=== PATIENT | male | born 1970 | race Caucasian/White ===

== ENCOUNTER 2018-06-18 01:09 | Emergency (ER) | payer OTHER ==
--- NOTE | 2018-06-18 01:31 | ED Physician Documentation ---
History of Present Illness - Stated complaint Stated Complaint: ABD PX/MALE PX - Chief complaint Chief Complaint: Abd Pain - History obtained from History obtained from: Patient - History of Present Illness Timing: Today Pain level max: 6 Pain level now: 6 - Additonal information Additional information: 48-year-old male presents with pain and swelling to the right hemiscrotum. States he does have an inguinal hernia, but normally does not. He has been sure if the pain is from his testicle or hernia. No vomiting. Normal bowel movements. No fevers. Nothing makes it better or worse Review of Systems Constitutional: denies: Fever, Chills Cardiac: denies: Chest pain / pressure Respiratory: denies: Cough GI: denies: Nausea, Vomiting, Diarrhea Skin: denies: Rash Musculoskeletal: denies: Neck pain, Back pain Neurologic: denies: Headache PD PAST MEDICAL HISTORY - Past Medical History Respiratory: Asthma Psych: Depression, Other - Present Medications Home Medications: Ambulatory Orders Medication Instructions Recorded Confirmed Albuterol Oral Soln 1 inhaler NEB PRN 05/28/15 Sertraline [Zoloft] 2 tab PO DAILY 05/28/15 05/28/15 Amox/Clav 875/125 [Augmentin] 1 each PO Q12H #20 tablet 06/18/18 Baclofen 10 mg PO TID 06/18/18 06/18/18 Cyanocobalamin (Vitamin B-12) 1 ml IM 06/18/18 [Cyanocobalamin Injection] Ergocalciferol [Vitamin D2] 1 cap PO 06/18/18 Fluoxetine HCl 20 mg PO DAILY 06/18/18 06/18/18 Fluticasone [Flonase] 2 spray NS DAILY 06/18/18 06/18/18 Hydrocodone/Acetaminophen 1 - 2 each PO Q6H PRN #14 tablet 06/18/18 [Hydrocodon-Acetaminophen 5-325] LORazepam [Lorazepam] 0.5 mg PO Q8HR PRN 06/18/18 06/18/18 Loratadine [Allergy] 10 mg PO DAILY 06/18/18 06/18/18 Meloxicam 7.5 mg PO DAILY 06/18/18 06/18/18 Nitroglycerin 0.4 mg SL DAILY PRN 06/18/18 06/18/18 Pantoprazole [Protonix] 40 mg PO DAILY 06/18/18 06/18/18 Pramipexole Di-HCl [Mirapex] 1 tab PO QPM 06/18/18 06/18/18 Pregabalin [Lyrica] 1 cap PO TID 06/18/18 06/18/18 Trazodone HCl 1 tab PO QPM 06/18/18 06/18/18 hydrOXYzine HCl [Hydroxyzine HCl] 25 mg PO BID 06/18/18 06/18/18 - Allergies Allergies/Adverse Reactions: Allergies Allergy/AdvReac Type Severity Reaction Status Date / Time No Known Drug Allergies Allergy Verified 06/18/18 01:37 - Social History Does the pt smoke?: Yes Smoking Status: Current every day smoker PD ED PE NORMAL - Vitals Vital signs reviewed: Yes - General General: Alert and oriented X 3, No acute distress, Other (Morbidly obese) - HEENT HEENT: Moist mucous membranes, Pharynx benign - Abdomen Abdomen: Soft, Non tender, Non distended - Male Male : Other (Diffusely tender along the right side of the scrotum. Swelling present to the scrotum, unable to fully reduce the hernia. Does have tenderness around the right testicle as well) - Derm Derm: Warm and dry - Neuro Neuro: Alert and oriented X 3 Results - Vitals Vitals: Vital Signs - 24 hr 06/18/18 06/18/18 01:15 02:43 Temperature 36.5 C Heart Rate 111 H 94 Respiratory 18 18 Rate Blood Pressure 150/96 H 139/70 H O2 Saturation 100 97 Oxygen O2 Source Room air - Labs Labs: Laboratory Tests 06/18/18 06/18/18 06/18/18 02:36 02:36 02:36 WBC 8.9 RBC 4.62 L Hgb 12.0 L Hct 37.0 L MCV 80.0 MCH 25.9 L MCHC 32.4 RDW 16.7 H Plt Count 282 MPV 7.4 Neut # (Auto) 6.6 Lymph # (Auto) 1.5 [place] # (Auto) 0.6 Eos # (Auto) 0.2 Baso # (Auto) 0.1 Absolute Nucleated RBC 0.00 Nucleated RBC % 0.0 Sodium 140 Potassium 3.8 Chloride 103 Carbon Dioxide 26 Anion Gap 11.0 BUN 15 Creatinine 1.0 Estimated GFR (MDRD) 80 L Glucose 132 H Lactic Acid 1.2 Calcium 8.6 Total Bilirubin 0.6 AST 18 ALT 16 Alkaline Phosphatase 104 Total Protein 7.2 Albumin 3.5 Globulin 3.7 Albumin/Globulin Ratio 0.9 L Lipase 24 Urine Color Urine Clarity Urine pH Ur Specific [place] Urine Protein Urine Glucose (UA) Urine Ketones Urine Occult Blood Urine Nitrite Urine Bilirubin Urine Urobilinogen Ur Leukocyte Esterase Urine RBC Urine WBC Ur Squamous Epith Cells Urine Bacteria Urine Mucus Ur Microscopic Review Urine Culture Comments 06/18/18 02:42 WBC RBC Hgb Hct MCV MCH MCHC RDW Plt Count MPV Neut # (Auto) Lymph # (Auto) [place] # (Auto) Eos # (Auto) Baso # (Auto) Absolute Nucleated RBC Nucleated RBC % Sodium Potassium Chloride Carbon Dioxide Anion Gap BUN Creatinine Estimated GFR (MDRD) Glucose Lactic Acid Calcium Total Bilirubin AST ALT Alkaline Phosphatase Total Protein Albumin Globulin Albumin/Globulin Ratio Lipase Urine Color YELLOW Urine Clarity HAZY Urine pH 6.5 Ur Specific [place] 1.020 Urine Protein 30 H Urine Glucose (UA) NEGATIVE Urine Ketones NEGATIVE Urine Occult Blood MODERATE H Urine Nitrite NEGATIVE Urine Bilirubin NEGATIVE Urine Urobilinogen 0.2 (NORMAL) Ur Leukocyte Esterase SMALL H Urine RBC TNTC H Urine WBC 4-5 Ur Squamous Epith Cells FEW Squamous Urine Bacteria Few Urine Mucus Few Strands Ur Microscopic Review INDICATED Urine Culture Comments INDICATED - Rads (name of study) Testicular ultrasound Radiology: Prelim report reviewed, EMP read contemporaneously, See rad report (Suspect right inguinal hernia containing fat. 2. Increased vascularity in the right testis and epididymis compared with the left. Findings may represent epididymoorchitis on the right. 3. Small bilateral hydroceles. ) PD MEDICAL DECISION MAKING - ED course Complexity details: reviewed results, re-evaluated patient, considered differential, d/w patient ED course: 48-year-old male with a large right inguinal fat-containing hernia. Normal lactate. Not incarcerated. Does appear to have epididymoorchitis on the right. Will place on Augmentin for this. He is well-appearing, nontoxic. Afebrile. I will have him follow-up with the surgeon for his inguinal hernia. Patient counseled regarding signs and symptoms for which I believe and urgent re- evaluation would be necessary. Patient with good understanding of and agreement to plan and is comfortable going home at this time This document was made in part using voice recognition software. While efforts are made to proofread this document, sound alike and grammatical errors may occur. Departure - Departure Disposition: 01 Home, Self Care Clinical Impression: Right inguinal hernia, Right epididymitis Condition: Good Instructions: ED Hernia Inguinal, ED Epididymitis Follow-Up: Hilaria Vazquez ARNP [Primary Care Provider] - Within 1 week Prescriptions: Amox/Clav 875/125 [Augmentin] 1 each PO Q12H #20 tablet Hydrocodone/Acetaminophen [Hydrocodon-Acetaminophen 5-325] 1 - 2 each PO Q6H PRN #14 tablet PRN Reason: pain Comments: Return if you worsen. Take all antibiotics until gone. This should improve over the next week. Use the Vicodin for breakthrough pain. Do not drink alcohol or drive while on narcotic pain medicine. Note that many narcotic pain relievers also contain tylenol/acetaminophen. Please ensure that your total dose of acetaminophen from all sources does not exceed 3 grams (3000mg) per day. You may constipated on this medication, take a stool softener such as "Colace" twice a day while you are on it. Also recommend a [id number] laxative such as senna or MiraLAX any day that you do not have a bowel movement. If you received narcotic pain medication in the emergency department, do not drive or operate machinery for the next 24 hours.
[2018-06-18] MEDS ORDERED: IBUPROFEN 800 MG TABLET PO STA (01:47)
[2018-06-18] MEDS ORDERED: ACETAMINOPHEN 325 MG TABLET PO STA (01:54)
[2018-06-18 02:42] LABS: BASOPHILS # (AUTO) 0.1 10^3/uL (0.0-0.1); BASOPHILS % (AUTO) 0.9 %; EOSINOPHILS # (AUTO) 0.2 10^3/uL (0.0-0.7); EOSINOPHILS % (AUTO) 1.7 %; LYMPHOCYTES # (AUTO) 1.5 10^3/uL (1.5-3.5); MEAN CORPUSCULAR HEMOGLOBIN 25.9 pg (27.0-31.0); MEAN CORPUSCULAR HGB CONC 32.4 g/dL (32.0-36.0); MEAN PLATELET VOLUME 7.4 fL (7.4-11.4); MONOCYTES # (AUTO) 0.6 10^3/uL (0.0-1.0); MONOCYTES % (AUTO) 6.4 %; NEUTROPHILS # (AUTO) 6.6 10^3/uL (1.5-6.6); PLT - PLATELET COUNT 282 10^3/uL (130-450); RED BLOOD COUNT 4.62 10^6/uL (4.70-6.10); RED CELL DISTRIBUTION WIDTH 16.7 % (12.0-15.0); WHITE BLOOD COUNT 8.9 x10^3/uL (4.8-10.8)
[2018-06-18 02:45] VITALS: BP 139/70
[2018-06-18 02:50] LABS: BILIRUBIN,URINE NEGATIVE (NEGATIVE); GLUCOSE, URINE (UA) NEGATIVE (NEGATIVE); KETONES,URINE (UA) NEGATIVE (NEGATIVE); LEUKOCYTE ESTERASE, URINE SMALL (NEGATIVE); NITRITE,URINE NEGATIVE (NEGATIVE); OCCULT BLOOD,URINE MODERATE (NEGATIVE); PH,URINE 6.5 PH (5.0-7.5); PROTEIN,URINE 30 mg/dL (NEGATIVE); UROBILINOGEN,URINE 0.2 (NORMAL) E.U./dL (NORMAL)
[2018-06-18 02:54] LABS: ALBUMIN 3.5 g/dL (3.2-5.5); ALBUMIN/GLOBULIN RATIO 0.9 (1.0-2.2); BILIRUBIN,TOTAL 0.6 mg/dL (0.2-1.0); CALCIUM 8.6 mg/dL (8.5-10.3); TOTAL PROTEIN 7.2 g/dL (6.7-8.2)
[2018-06-18 02:58] LABS: BACTERIA,URINE Few /HPF (None Seen); CLARITY,URINE HAZY (CLEAR); MUCUS,URINE Few Strands; RBC,URINE TNTC /HPF (0-5); SQUAMOUS EPITHELIAL CELL,UR FEW Squamous (<= Few)
--- NOTE | 2018-06-18 03:05 | Ultrasound Report ---
Reason: R testicular pain/swelling Procedure Date: 06/18/2018 Accession Number: [id number] / [id number] Procedure: US - Testicle w/Doppler CPT Code: FULL RESULT: EXAM: SCROTAL ULTRASOUND EXAM DATE: 06/18/2018 02:40 AM. CLINICAL HISTORY: R testicular pain/swelling. COMPARISON: CT PELVIS W/ CONT 04/26/2012 3:59 PM. TECHNIQUE: Real-time scanning was performed with static images obtained. Color-flow images were utilized. FINDINGS: Right: Testis: 4.1 x 3.6 x 2.4 cm. Normal size. No mass identified. Slightly increased vascularity compared with the left. Epididymis: 0.9 x 1.0 x 1.2 cm. Cyst measuring 2 mm. Increased vascularity. Hydrocele: Small. Varicocele: None. Left: Testis: 4.3 x 2.2 cm. Normal size and echotexture. No mass, calcification, or abnormal blood flow. Epididymis: 0.7 x 1.0 x 1.0 cm. Cyst measuring 3 x 5 x 2 mm. Hydrocele: Small. Varicocele: None. Other: There is a suspected right inguinal hernia containing fat. IMPRESSION: 1. Suspect right inguinal hernia containing fat. 2. Increased vascularity in the right testis and epididymis compared with the left. Findings may represent epididymoorchitis on the right. 3. Small bilateral hydroceles. RADIA
[2018-06-18] MEDS ORDERED: AMOX/CLAV 875 MG/125 MG TABLET PO STA (03:13)
== END 2018-06-18 03:21 | disposition home or self-care (01) ==
LOC: ED 01:09
DX: K40.90 Unilateral inguinal hernia, without obstruction or gangrene, not specified as recurrent (principal); N45.1 Epididymitis; F17.200 Nicotine dependence, unspecified, uncomplicated
CPT/HCPCS: 36415; 76870; 80053; 81001; 83605; 83690; 85025; 87086; 87181; 93975; 99283; A9270; 81003

== ENCOUNTER 2023-11-04 12:07 | Outpatient (CLI) | payer OTHER | END 2023-11-04 12:08 | disposition home or self-care (01) | LOC: LAB.N 12:07 | PROVIDERS: ATTEND Physician Assistant | DX: N30.00 Acute cystitis without hematuria (principal) | CPT/HCPCS: 87086 ==

== ENCOUNTER 2023-11-08 09:10 | Emergency (ER) | payer OTHER ==
--- NOTE | 2023-11-08 09:25 | ED Physician Documentation ---
History of Present Illness - Stated complaint Stated Complaint: ,GROIN PX - Chief complaint Chief Complaint: Abd Pain - History obtained from History obtained from: Patient - Additonal information Additional information: 53-year-old gentleman with morbid obesity albeit has lost 140 pounds lately due to Ozempic. Has a history of epididymal orchitis in 2019 which required hospitalization for 5 days in [place] without surgical intervention. He developed dysuria last week and went to the clinic. He was diagnosed with a UTI and started on Cipro on . Subsequently urine culture grew greater than 100 K E. coli which was pansensitive. Now having more left testicular pain. No high fevers but states his temp has been high normal up to 99.8. Pain radiates into back. He does have chronic back pain for which she is on a buprenorphine patch. PD PAST MEDICAL HISTORY - Past Medical History Past Medical History: Yes Respiratory: Asthma GI: GERD : Other Psych: Depression, Other Musculoskeletal: Fibromyalgia, Chronic back pain, Other - Past Surgical History Past Surgical History: Yes General: Cholecystectomy - Present Medications Home Medications: Ambulatory Orders Medication Instructions Recorded Confirmed Cyanocobalamin (Vitamin B-12) 1 ml IM UD 06/18/18 11/08/23 [Cyanocobalamin Injection] Ergocalciferol [Vitamin D2] 1 cap PO DAILY 06/18/18 11/08/23 Pantoprazole [Protonix] 40 mg PO DAILY 06/18/18 11/08/23 Pregabalin [Lyrica] 1 cap PO TID 06/18/18 11/08/23 Trazodone HCl 3 tab PO QPM 06/18/18 11/08/23 hydrOXYzine HCL [Hydroxyzine HCl] 25 mg PO BID 06/18/18 11/08/23 Albuterol Sulfate [Proair 90 mcg IH PRN PRN 11/08/23 11/08/23 Respiclick] Atorvastatin [Lipitor] 20 mg PO QPM 11/08/23 11/08/23 Buprenorphine 1 each TD OAW 11/08/23 11/08/23 Ciprofloxacin [Cipro] 500 mg PO Q12H 11/08/23 11/08/23 Cyanocobalamin [Vitamin B-12] 1,000 mcg IM OAW 11/08/23 11/08/23 Cyclobenzaprine [Flexeril] 10 mg PO TID PRN 11/08/23 11/08/23 Ergocalciferol [Vitamin D2] 50,000 unit PO Q7D 11/08/23 11/08/23 Montelukast [Singulair] 10 mg PO QPM 11/08/23 11/08/23 Polyethylene Glycol 8000 500 gm MC DAILY 11/08/23 11/08/23 [Polyethylene Glycol] Semaglutide [Wegovy] 2 mg SQ OAW 11/08/23 11/08/23 Sulfamethox/Trimeth 800/160 1 each PO BID #20 tablet 11/08/23 [Bactrim Ds 800/160] busPIRone [Buspar] 10 mg PO BID 11/08/23 11/08/23 metFORMIN [Glucophage] 2,000 mg PO DAILY 11/08/23 11/08/23 - Allergies Allergies/Adverse Reactions: Allergies Allergy/AdvReac Type Severity Reaction Status Date / Time No Known Drug Allergies Allergy Verified 11/08/23 09:22 - Social History Does the pt smoke?: Yes Smoking Status: Current every day smoker Does the pt drink ETOH?: Yes Does the pt have substance abuse?: No - Immunizations Immunizations are current?: Yes - POLST Patient has POLST: No PD ED PE NORMAL - Vitals Vital signs reviewed: Yes - General General: Alert and oriented X 3, No acute distress - Abdomen Abdomen: Normal bowel sounds, Soft, Non tender - Male Male : Other (Left testicle is swollen and tender with normal cremaster reflex and normal lie. No hernia mass. Exam somewhat limited by body habitus.) - Neuro Neuro: Alert and oriented X 3 Results - Vitals Vitals: Vital Signs - 24 hr 11/08/23 09:19 Temperature 36.2 C L Heart Rate 121 H Respiratory 20 Rate Blood Pressure 127/98 H O2 Saturation 95 Oxygen O2 Source Room air - Labs Labs: Laboratory Tests 11/08/23 11/08/23 11/08/23 09:30 09:30 09:30 WBC 9.2 RBC 5.21 Hgb 14.2 Hct 44.4 MCV 85.2 MCH 27.3 MCHC 32.0 RDW 15.2 H Plt Count 394 MPV 9.8 Neut # (Auto) Not Reportable Lymph # (Auto) Not Reportable [place] # (Auto) Not Reportable Eos # (Auto) Not Reportable Baso # (Auto) Not Reportable Absolute Nucleated RBC Not Reportable Total Counted 100 Band Neuts % (Manual) 0 Reactive Lymphs % (Man) 6 Abnorm Lymph % (Manual) 0 Nucleated RBC % Not Reportable Neutrophils # (Manual) 4.4 Lymphocytes # (Manual) 3.5 Monocytes # (Manual) 0.5 Eosinophils # (Manual) 0.6 Basophils # (Manual) 0.2 H Differential Comment MANUAL DIFFERENTIAL WBC Morphology 2+ REACTIVE LYMPHS Sodium 135 Potassium 4.1 Chloride 101 Carbon Dioxide 25 Anion Gap 9.0 BUN 12 Creatinine 0.8 Estimated GFR (MDRD) 101 Glucose 142 H Lactic Acid 1.0 Calcium 9.7 Total Bilirubin 0.7 AST 15 ALT 23 Alkaline Phosphatase 116 Total Protein 7.1 Albumin 4.1 Globulin 3.0 Albumin/Globulin Ratio 1.4 Total PSA 11/08/23 09:30 WBC RBC Hgb Hct MCV MCH MCHC RDW Plt Count MPV Neut # (Auto) Lymph # (Auto) [place] # (Auto) Eos # (Auto) Baso # (Auto) Absolute Nucleated RBC Total Counted Band Neuts % (Manual) Reactive Lymphs % (Man) Abnorm Lymph % (Manual) Nucleated RBC % Neutrophils # (Manual) Lymphocytes # (Manual) Monocytes # (Manual) Eosinophils # (Manual) Basophils # (Manual) Differential Comment WBC Morphology Sodium Potassium Chloride Carbon Dioxide Anion Gap BUN Creatinine Estimated GFR (MDRD) Glucose Lactic Acid Calcium Total Bilirubin AST ALT Alkaline Phosphatase Total Protein Albumin Globulin Albumin/Globulin Ratio Total PSA 1.590 PD Medical Decision Making - ED course ED course: 53-year-old gentleman with morbid obesity presents with testicular pain in the setting of having been on Cipro for the last 4 days or so for a UTI with pansensitive E. coli. He has a history of sepsis due to epididymitis with abdominal wall cellulitis 5 years ago. There is no evidence of systemic illness today. He was initially tachycardic but that resolved without specific intervention. His white count is 9. PSA is normal. CMP unremarkable. Testicular ultrasound per the RDMS shows left-sided epididymitis. Given the fact that he developed it while already on antibiotics, I called our urologist, Dr. Boo who recommends changing him over to Bactrim. Departure - Departure Disposition: 01 Home, Self Care Clinical Impression: Acute epididymitis Condition: Good Record reviewed to determine appropriate education?: Yes Instructions: ED Epididymitis Follow-Up: Low Boo MD [Provider Admit Priv/Credential] - Prescriptions: Sulfamethox/Trimeth 800/160 [Bactrim Ds 800/160] 1 each PO BID #20 tablet Comments: I sent your prescription electronically to [facility] in [place]. You are seen today for the epididymitis on the left. I discussed your case by phone with our on-call urologist, Dr. Boo who made the specific recommendation to stop Cipro and start Bactrim. We also gave you a shot of Rocephin here. You should follow-up with Dr. Boo. Return for for new or worsening symptoms. Forms: PCP List
[2023-11-08 09:26] VITALS: O2SAT 95
[2023-11-08] MEDS: KETOROLAC 60 MG/2 ML VIAL IM STA (09:29)
[2023-11-08 09:36] LABS: BASOPHILS % (AUTO) 0.9 %; EOSINOPHILS % (AUTO) 2.8 %; HCT - HEMATOCRIT 44.4 % (42.0-52.0); HGB - HEMOGLOBIN 14.2 g/dL (14.0-18.0); LYMPHOCYTES % (AUTO) 27.4 %; MEAN CORPUSCULAR HEMOGLOBIN 27.3 pg (27.0-31.0); MEAN CORPUSCULAR VOLUME 85.2 fL (80.0-94.0); MEAN PLATELET VOLUME 9.8 fL (7.4-11.4); MONOCYTES % (AUTO) 7.9 %; NEUTROPHILS % (AUTO) 60.7 %; PLT - PLATELET COUNT 394 10^3/uL (130-450); RED BLOOD COUNT 5.21 10^6/uL (4.70-6.10); RED CELL DISTRIBUTION WIDTH 15.2 % (12.0-15.0); WHITE BLOOD COUNT 9.2 x10^3/uL (4.8-10.8)
[2023-11-08 09:40] LABS: ABNORMAL LYMPHS % (MANUAL) 0 %; BAND NEUTROPHILS % (MANUAL) 0 %
[2023-11-08 09:52] LABS: ALBUMIN 4.1 g/dL (3.2-5.5); ALBUMIN/GLOBULIN RATIO 1.4 (1.0-2.2); BILIRUBIN,TOTAL 0.7 mg/dL (0.2-1.0); CALCIUM 9.7 mg/dL (8.5-10.3); CREATININE 0.8 mg/dL (0.6-1.3); POTASSIUM 4.1 mmol/L (3.5-4.5); TOTAL PROTEIN 7.1 g/dL (6.4-8.9)
[2023-11-08 09:59] LABS: BASOPHILS # (MANUAL) 0.2 10^3/uL (0-0.1); BASOPHILS % (MANUAL) 2 %; EOSINOPHILS # (MANUAL) 0.6 10^3/uL (0-0.7); LYMPHOCYTES # (MANUAL) 3.5 10^3/uL (1.5-3.5); LYMPHOCYTES % (MANUAL) 32 %; MONOCYTES # (MANUAL) 0.5 10^3/uL (0.0-1.0); NEUTROPHILS # (MANUAL) 4.4 10^3/uL (1.5-6.6); REACTIVE LYMPHS % (MANUAL) 6 %
[2023-11-08 10:00] LABS: DIFFERENTIAL COMMENT MANUAL DIFFERENTIAL; WBC MORPHOLOGY (MULTIPLE) 2+ REACTIVE LYMPHS (NORMAL)
[2023-11-08] MEDS: LIDOCAINE 1% 2 ML VIAL MC ONE (11:14)
[2023-11-08] MEDS: cefTRIAXone 1 GM VIAL IM STA (11:14)
[2023-11-08 11:38] VITALS: BP 123/77
--- NOTE | 2023-11-08 11:41 | Ultrasound Report ---
PROCEDURE: Testicle w/Doppler INDICATIONS: L test pain TECHNIQUE: Real-time scanning was performed of the scrotum and testicles, with image documentation. Color and p ulse Doppler interrogation was performed of both testicles. COMPARISON: None. FINDINGS: Right: Testicle is normal in size at 4.1 x 3.6 x 2.4 cm, and contains scattered microliths without m ass noted. Epididymis is normal in overall size and morphology. No hydrocele. No varicoceles. Over lying scrotal skin is normal in thickness. Left: Testicle is normal in size at 4.3 x 3.1 x 2.2 cm, and contains scattered microliths without ma ss noted. Enlarged left epididymis with increased flow consistent with epididymitis. Small hydrocele. No varicoceles. Overlying scrotal skin is normal in thickness. Doppler: Color and pulse Doppler demonstrate normal and symmetric arterial flow in both testicles. IMPRESSION: 1. Left epididymitis. 2. No evidence of testicular mass, testicular torsion, or orchitis. Above discussed with Markos Canchola MD at the time of dictation. Reviewed by: Dewayne Serrano MD on 11/08/2023 11:40 AM PDT Approved by: Dewayne Serrano MD on 11/08/2023 11:40 AM PDT Station ID: [id number]
== END 2023-11-08 11:24 | disposition home or self-care (01) ==
LOC: ED 09:10
DX: N45.1 Epididymitis (principal); M79.7 Fibromyalgia; E66.01 Morbid (severe) obesity due to excess calories; F17.200 Nicotine dependence, unspecified, uncomplicated; Z79.899 Other long term (current) drug therapy
CPT/HCPCS: 36415; 80053; 83605; 84153; 85025; 93975; 96372; 99284

== ENCOUNTER 2023-11-17 08:00 | Outpatient (CLI) | payer OTHER | END 2023-11-17 23:59 | disposition home or self-care (01) | LOC: LAB.N 08:00 | PROVIDERS: ATTEND Physician Assistant | DX: N45.1 Epididymitis (principal) | CPT/HCPCS: 87086 ==